=== PATIENT | female | born 1965 | race Two or more races ===

== ENCOUNTER 2023-12-26 11:26 | Emergency (ER) | payer MEDICAID ==
[2023-12-26 12:52] VITALS: BP 148/90; PULSE 80; RESP 18; TEMP 97.9; O2SAT 98
[2023-12-26] MEDS ORDERED: METH4PAK PO (14:01)
[2023-12-26] MEDS ORDERED: DICL1GEL59 EX (14:01)
[2023-12-26] MEDS ORDERED: MELO15TA29 PO (14:01)
== END 2023-12-26 14:24 | disposition home or self-care (01) ==
LOC: ER 11:26
DX: M23.8X2 Other internal derangements of left knee (principal); Z79.899 Other long term (current) drug therapy
CPT/HCPCS: 73562